=== PATIENT | female | born 1980 | race American Indian/Alaskan Native ===

== ENCOUNTER 2016-05-15 09:21 | Inpatient (IN) | payer MEDICAID ==
[2016-05-15] MEDS ORDERED: ZOFRAN IV PRN (10:08)
[2016-05-15] MEDS ORDERED: NARCAN 0.4 MG/1 ML IV PRN ×2 (10:08→13:00)
[2016-05-15] MEDS ORDERED: BENADRYL IV PRN (10:08)
--- NOTE | 2016-05-15 10:08 | Anesthesia Consultation ---
Anesthesia Consult and Med Hx Date of service: 05/15/16 - Airway Anesthetic Teeth Evaluation: Good ROM Head & Neck: Adequate Mental/Hyoid Distance: Adequate Mallampati Class: Class II Intubation Access Assessment: Probably Good - Pre-Operative Health Status ASA Pre-Surgery Classification: ASA2 Proposed Anesthetic Plan: Spinal - Cardiovascular System Hx Hypertension: No
--- NOTE | 2016-05-15 10:08 | Anesthesia Day of Surgery ---
Anesthesia Day of Surgery - Day of Surgery Patient Examined: Yes Patient H&P Reviewed: Yes Patient is NPO: Yes
[2016-05-15] MEDS ORDERED: BICITRA PO ONE (10:16)
[2016-05-15] MEDS ORDERED: PEPCID IV ONE (10:16)
[2016-05-15] MEDS ORDERED: REGLAN IV ONE (10:16)
[2016-05-15 10:43] LABS: Basophils % (Auto) 0.4 % (0.0-1.8); Eosinophils % (Auto) 0.5 % (0.0-4.3); Hematocrit 34.7 % (30.3-42.9); Hemoglobin 11.4 gm/dl (10.1-14.3); Mean Corpuscular HGB Conc 33 % (30-34); Mean Corpuscular Volume 79 fl (79-97); Platelet Count 199 K/mm3 (140-440); Red Cell Distribution Width 17.5 % (13.2-15.2); White Blood Count 10.3 K/mm3 (4.5-11.0)
[2016-05-15 10:44] LABS: Mean Corpuscular Hemoglobin 26 pg (28-32)
--- NOTE | 2016-05-15 10:44 | History and Physical Report ---
History of Present Illness Date of examination: 05/15/16 Date of admission: 05/15/16 09:21 Chief complaint: Repeat C Section History of present illness: Pt is a 36yo BF EDC 05/20/16; EGA 39 2/7 weeks presents for a Repeat C Section. She received care at [facility] since 11 weeks, but has not returned since 21 weeks according to her records, and course has been unremarkable except for AMA and previous C Section x 2 - the last one done at 24 weeks for Hydrops with subsequent demise. She now presents for a Repeat C Section. GBS status is unknown. Past History Past Medical History: no pertinent history, other (ectopic treated with methotrexate) Past Surgical History: section, other (D&C) Family/Genetic History: hypertension, cancer Social history: no significant social history, single - Obstetrical History Expected Date of Delivery: 05/20/16 Actual Gestation: 39 Week(s) 2 Day(s) Medications and Allergies Allergies Allergy/AdvReac Type Severity Reaction Status Date / Time No Known Allergies Allergy Unverified 08/22/14 18:31 Home Medications Medication Instructions Recorded Confirmed Last Taken Type Pnv95/Ferrous Fumarate/FA 1 each PO QDAY #90 tablet 08/22/14 Unknown Rx [ Vitamins] Active Meds: Active Medications Diphenhydramine HCl (Benadryl) 12.5 mg IV Q2H PRN PRN Reason: Itching Hydromorphone HCl (Dilaudid) 0.5 mg IV Q4H PRN PRN Reason: breakthrough pain > 7/10 Lactated Ringer's (Lactated Ringers) 1,000 mls @ 2,250 mls/hr IV PREOP NR Stop: 05/16/16 11:27 Oxytocin/Sodium Chloride (Pitocin/Ns 20 Unit/1000ml Drip) 1,000 mls @ 0 mls/hr IV TITR NR PRN Reason: Per Protocol Stop: 05/15/16 23:59 Ketorolac Tromethamine (Toradol) 30 mg IV Q6H PRN PRN Reason: Pain, Moderate (4-6) Stop: 05/20/16 10:08 Naloxone HCl (Narcan 0.4 Mg/1 Ml) 0.2 mg IV Q2MIN PRN PRN Reason: Res Rate </= 8 or 02 SAT < 92% Stop: 05/17/16 10:09 Ondansetron HCl (Zofran) 4 mg IV Q8H PRN PRN Reason: Nausea And Vomiting Sodium Chloride (Sodium Chloride Flush Syringe 10 Ml) 10 ml IV PRN NR Stop: 05/15/16 23:59 Review of Systems All systems: negative - Physical Exam Breasts: Positive: deferred Cardiovascular: Regular rate Lungs: Positive: Clear to auscultation Abdomen: Positive: normal appearance, soft Genitourinary (Female): Positive: normal external genitalia Uterus: Positive: enlarged Extremities: Positive: normal - Obstetrical FHR: category 1 Uterine Contraction Monitor Mode: External Results Result Diagrams: 05/15/16 10:30 All other labs normal. Assessment and Plan - Patient Problems (1) Previous delivery affecting Diagnosis Date: 05/15/16 Current Visit: Yes Status: Acute Plan to address problem: A: IUP @ 39 2/7 weeks Previous C Section x 2 AMA P: Admit to L&D for repeat C Section
[2016-05-15] MEDS ORDERED: SODIUM CHLORIDE FLUSH SYRINGE 10 ML IV NR (11:00)
[2016-05-15] MEDS ORDERED: LACTATED RINGERS 1,000 ML IV NR (11:00)
[2016-05-15] MEDS ORDERED: PITOCin/NS 20 UNIT/1000ML DRIP 1,000 ML IV NR (11:00)
[2016-05-15] MEDS ORDERED: ANCEF/STERILE WATER 2 GM/20 ML IV ONE (11:35)
[2016-05-15] MEDS ORDERED: MORPHINE ONE (11:38)
[2016-05-15] MEDS ORDERED: ePHEDrine SULFATE ONE (11:55)
[2016-05-15] MEDS ORDERED: WATER FOR IRRIG STERILE IR ONE (12:08)
[2016-05-15] MEDS ORDERED: NACL 0.9% IR ONE (12:08)
[2016-05-15] MEDS ORDERED: TORADOL ONE (12:45)
--- NOTE | 2016-05-15 12:59 | Operative Report ---
Operative Report Operative Report: Date of procedure: 05/15/2016 Pre-operative diagnosis: 1. Intrauterine at 39-2/7 weeks 2. Previous section 2 Post-operative diagnosis: Same Procedure name(s): Repeat low transverse section Surgeon: Misael Roman MD Pyrometer Mechanic: None Anesthesia: Spinal epidural anesthesia by Dr. Miguel Lr EBL: 800 mL's Findings: A 3707 g male Apgars 8 at 1 minute 9 at 5 minutes. 1+ meconium fluid. Nuchal cord 1. Normal uterus. Normal tubes and ovaries bilaterally. Procedure: After the patient was prepped and draped in usual sterile fashion, and after satisfactory level of epidural anesthesia was obtained, the skin knife was used to make a transverse skin incision through the previous skin scar. The incision was excised down to layer of the fascia, which was nicked in the midline and extended laterally using the Bovie cautery. The rectus muscles were dissected off the rectus fascia both superiorly and inferiorly. The rectus bellies in the midline, and the peritoneum was entered under direct visualization. The peritoneal incision was extended superiorly and inferiorly. A bladder flap was created and the bladder blade was then placed. The uterus was scored in a curvilinear linear fashion, entered in the midline revealing meconium amniotic fluid. The 's head was delivered onto the surgical field, nuchal cord 1 easily reduced, and the oropharynx and nasopharynx were bulb suctioned. The rest of the 's body was delivered, cord was doubly clamped and cut and the infant was handed to the waiting respiratory team. The placenta was manually removed from the uterus, and the uterus removed from its normal anatomical position. After gentle uterine lavage , the incision was inspected and found to be without extensions. It was then closed in 2 layers using 0 Vicryl suture in a running interlocking fashion, the second layer imbricating the first. After good hemostasis was achieved, copious amounts or irrigation was performed, and the gutters were suctioned free of blood and blood clots. The Tisseel sealant was sprayed across the uterine incision. The uterus was then returned to its normal anatomical position, and after excellent hemostasis assured, the peritoneum was reapproximated using 3-0 Vicryl suture in a running interlocking fashion, and then the rectus muscles were reapproximated using 3-0 Vicryl suture in a figure- of-eight configuration. The fascia was then reapproximated using 0 Vicryl suture in running interlocking fashion. The subcutaneous layer was made hemostatic using Bovie cautery, the Tisseel sealant was sprayed across the fascial incision and the skin edges reapproximated using 4-0 Vicryl suture in a subcuticular fashion. Patient tolerated the procedure well was transported to recovery in stable condition.
[2016-05-15] MEDS ORDERED: TYLENOL PO PRN (13:00)
[2016-05-15] MEDS ORDERED: PITOCin/NS 20 UNIT/1000ML DRIP 1,000 ML IV SCH (13:00)
[2016-05-15] MEDS ORDERED: PHENERGAN PR PRN (13:00)
[2016-05-15] MEDS ORDERED: LANSINOH TP PRN (13:00)
[2016-05-15] MEDS ORDERED: NORCO 5/325 PO PRN (13:00)
[2016-05-15] MEDS ORDERED: MYLICON PO PRN (13:00)
[2016-05-15] MEDS ORDERED: MILK OF MAGNESIA PO PRN (13:00)
[2016-05-15] MEDS ORDERED: SODIUM CHLORIDE FLUSH SYRINGE 10 ML IV SCH (13:00)
[2016-05-15] MEDS ORDERED: SENOKOT PO PRN (13:00)
[2016-05-15] MEDS ORDERED: TUCKS PAD TP PRN (13:00)
[2016-05-15] MEDS: DILAUDID IV PRN ×2 (13:00→17:00)
[2016-05-15] MEDS ORDERED: ANCEF/NS 1 GM/50 ML 50 ML IV SCH (14:00)
[2016-05-15] MEDS ORDERED: D5LR 1,000 ML IV SCH (14:00)
[2016-05-15] MEDS: TORADOL IV PRN (18:20)
[2016-05-15] MEDS: ANCEF/NS 1 GM/50 ML 50 ML IV SCH (21:50)
[2016-05-16 00:52] LABS: Hematocrit 29.6 % (30.3-42.9); Hemoglobin 9.3 gm/dl (10.1-14.3)
[2016-05-16] MEDS: TORADOL IV PRN (02:00)
[2016-05-16] MEDS: ANCEF/NS 1 GM/50 ML 50 ML IV SCH (04:12)
[2016-05-16] MEDS ORDERED: BOOSTRIX IM ONE (06:02)
[2016-05-16] MEDS: MOTRIN PO PRN ×3 (08:25→19:55)
[2016-05-16] MEDS: PERCOCET 5/325 PO PRN ×3 (08:25→19:55)
[2016-05-16] MEDS ORDERED: FEOSOL PO SCH (10:00)
[2016-05-16] MEDS ORDERED: PRENATAL VITAMIN PO SCH (10:00)
[2016-05-16] MEDS ORDERED: M-M-R II VACCINE SUB-Q ONE (13:02)
--- NOTE | 2016-05-16 15:34 | Progress Note ---
Assessment and Plan - Patient Problems (1) Previous delivery affecting Diagnosis Date: 05/15/16 Current Visit: Yes Status: Resolved (2) Status post repeat low transverse section Diagnosis Date: 05/16/16 Current Visit: Yes Status: Resolved Plan to address problem: A: S/P Repeat C Section - POD #1 Doing well P: Continue RPOC Anticipate discharge in 24-48hrs Subjective - Subjective Date of service: 05/16/16 Principal diagnosis: s/p Repeat C Section - POD #1 Interval history: Pt is s/p a Repeat C Section, and feeling well. She is tolerating a liquid diet without nausea or vomiting, ambulating and voiding without difficulty. Bleeding has improved. Patient reports: appetite normal, voiding normally, pain well controlled, flatus , ambulating normally, no bowel movement [place]: doing well, bottle feeding Objective - Vital Signs Latest vital signs: Vital Signs Temp Pulse Pulse Resp BP 05/16/16 14:20 18 05/16/16 08:36 98.5 F 76 24 108/62 05/16/16 08:25 20 05/16/16 04:30 99.1 F 72 20 115/58 05/16/16 00:00 99.3 F 60 20 113/55 05/15/16 20:00 98.4 F 61 20 115/72 Intake and Output 05/16/16 05/16/16 05/16/16 06:59 14:59 22:59 Intake Total 240 840 Output Total 1100 Balance -860 840 Intake: Oral 240 840 Output: Urine 1100 Void 300 Indwelling Catheter 800 Other: Total, Intake Amount 240 360 Total, Output Amount 300 # Voids Void 1 - Exam Breasts: Present: deferred Cardiovascular: Present: Regular rate Lungs: Present: Clear to auscultation Abdomen: Present: normal appearance, soft Uterus: Present: normal, firm, fundal height below umbilicus Extremities: Present: normal Incision: Present: normal, dry, intact, dressed - Labs Labs: Abnormal lab results 05/16/16 Range/Units 00:40 Hgb 9.3 L (10.1-14.3) gm/dl Hct 29.6 L (30.3-42.9) % Laboratory Tests 05/15/16 05/15/16 05/16/16 10:30 11:01 00:40 WBC 10.3 RBC 4.40 Hgb 11.4 9.3 L Hct 34.7 29.6 L MCV 79 MCH 26 L MCHC 33 RDW 17.5 H Plt Count 199 Lymph % (Auto) 14.6 [place] % (Auto) 8.2 H Eos % (Auto) 0.5 Baso % (Auto) 0.4 Lymph # 1.5 [place] # 0.8 Eos # 0.1 Baso # 0.0 Seg Neutrophils % 76.3 H Seg Neutrophils # 7.9 H Blood Type AB POSITIVE Antibody Screen Negative
[2016-05-17] MEDS: MOTRIN PO PRN ×2 (01:25→09:00)
[2016-05-17] MEDS: PERCOCET 5/325 PO PRN ×2 (01:25→09:00)
--- NOTE | 2016-05-17 09:38 | Progress Note ---
Assessment and Plan A. POD #2: normal course Anemia Plans IUD for contraception P DC home Fe daily F/U at office in 6 wk pp Call for circ apt tomorrow for Subjective - Subjective Date of service: 05/17/16 Principal diagnosis: s/p Repeat C Section - POD #1 Patient reports: appetite normal, voiding normally, pain well controlled, ambulating normally, other (Requests DC today) [place]: doing well, bottle feeding Objective - Vital Signs Latest vital signs: Vital Signs Temp Pulse Resp BP 05/17/16 09:00 20 05/17/16 08:12 98.5 F 76 20 106/64 05/17/16 01:25 18 05/16/16 23:05 98.5 F 79 20 111/59 05/16/16 16:44 98.4 F 76 29 H 110/74 05/16/16 14:20 18 Intake and Output 05/16/16 05/17/16 05/17/16 22:59 06:59 14:59 Intake Total 240 240 Balance 240 240 Intake: Oral 240 240 Other: Total, Intake Amount 240 240 # Voids Void 1 1 - Exam Breasts: Present: deferred Cardiovascular: Present: Regular rate, Normal S1, Normal S2, No murmurs Lungs: Present: Clear to auscultation Abdomen: Present: normal appearance, normal bowel sounds Uterus: Present: normal, firm, fundal height at umbilicus Extremities: Present: normal Incision: Present: normal, dry, intact
--- NOTE | 2016-05-17 09:41 | Discharge Summary ---
Providers - Providers Date of Admission: 05/15/16 09:21 Date of discharge: 05/17/16 Attending physician: MARY RAMIREZ MD Primary care physician: MARY RAMIREZ MD Hospitalization Reason for admission: active labor, rupture of membranes Delivery: Procedure: primary low transverse Laceration: none Incision: normal Other procedures: none complications: none [place] baby: male Condition at discharge: Good Disposition: DISCHARGED TO HOME OR SELFCARE Plan - Discharge Medications Prescriptions: Ferrous Sulfate [Feosol 325 MG tab] 325 mg PO BID #60 tablet Ibuprofen [Motrin] 800 mg PO Q8HR PRN #30 tablet PRN Reason: Moder Pain Unrelieved By Velma HYDROcodone/APAP 5-325 [Velma 5/325] 1 each PO Q6HR PRN #30 tablet PRN Reason: Pain Vit W-Ca,Fe,FA(<1 mg) [ Vitamins] 1 each PO DAILY #30 tablet - Provider Discharge Summary Additional instructions: [] Smoking cessation referral if applicable(refer to patient education folder for contact #) [] Refer to [facility] Booklet Call your doctor immediately for: * Fever > 100.5 * Heavy vaginal bleeding ( >1 pad per hour) * Severe persistent headache * Shortness of breath * Reddened, hot, painful area to leg or breast * Drainage or odor from incision. * Keep incision clean and dry at all times and follow doctor's instructions regarding bathing/showering - Follow up plan Follow up: MARY CARL MD [Primary Care Provider] - CHARI RUIZ CNM [Advanced Practice Nurse] - 6 Weeks
[2016-05-17 12:11] VITALS: BP 118/70
== END 2016-05-17 11:30 | disposition home or self-care (01) | DRG 765 ==
LOC: APU 09:21 → OB 14:08
PROVIDERS: ADMIT Obstetrics & Gynecology; ATTEND Obstetrics & Gynecology
PROC: 10D00Z1 Extraction of Products of Conception, Low, Open Approach (ICD-10-PCS; principal; 2016-05-15)
DX: O34.211 Maternal care for low transverse scar from previous cesarean delivery (principal); D62 Acute posthemorrhagic anemia; O90.81 Anemia of the puerperium; O77.0 Labor and delivery complicated by meconium in amniotic fluid; O69.81X0 Labor and delivery complicated by cord around neck, without compression, not applicable or unspecified; Z3A.39 39 weeks gestation of pregnancy; Z37.0 Single live birth; O09.523 Supervision of elderly multigravida, third trimester
CPT/HCPCS: 36415; 85014; 85018; 85025; 86850; 86900; 86901; 99211; C9250; G0463; J0690; J1170; J1885; J2270; J2590; J2765; J7120; J7121